=== PATIENT | male | born 1985 | race Caucasian/White ===

== ENCOUNTER 2020-01-25 13:05 | Emergency (ER) | payer OTHER, SELFPAY ==
[2020-01-25 13:12] VITALS: BP 126/75; PULSE 63; RESP 16; TEMP 37; O2SAT 100
[2020-01-25 13:28] VITALS: BP 126/75; PULSE 63; RESP 16; TEMP 37; O2SAT 100
--- NOTE | 2020-01-25 13:37 | ED.URI ---
HPI - URI/Sore Throat General Chief Complaint: Upper Respiratory Infection Stated Complaint: sore throat Time Seen by Provider: 01/25/20 13:43 Source: patient History of Present Illness HPI Narrative: Patient presents with a sore throat that started last night. Patient states he has no trouble swallowing and no drooling. Patient states he has seasonal allergies and for the past 2 weeks has had a sinus headache. Patient reports occasional cough increased body aches and generalized fatigue. Patient denies any shortness of breath and no chest pain. Patient is not taking thing [id number] for his symptoms. Related Data Home Medications Medication Instructions Recorded Confirmed albuterol sulfate 90 inh INHALATION PRN 01/25/20 01/25/20 Allergies Allergy/AdvReac Type Severity Reaction Status Date / Time egg Allergy Unknown N/V Verified 01/25/20 13:28 Review of Systems Review of Systems: Narrative: CONSTITUTIONAL: Denies chills, or sweats. Reports fever and generalized body aches EYES: Denies visual changes, redness, or discharge. ENT: Denies otalgia. Reports nasal congestion runny nose and sore throat CARDIOVASCULAR: Denies chest pain, palpitations, or edema. RESPIRATORY: Denies dyspnea. Reports occasional cough GASTROINTESTINAL: Denies abdominal pain, nausea, vomiting, or diarrhea. GENITOURINARY: Denies dysuria or hematuria. SKIN: Denies rash or itching. MUSCULOSKELETAL: Denies back pain, joint pain, or myalgia. Reports generalized body aches NEUROLOGIC: Denies headache, numbness, or weakness. PSYCHIATRIC: Denies anxiety or depression. PMFSH Comments At time of signature, agree with nursing past medical, surgical, social and family history. There is no relevant family history pertinent to the presenting complaint Exam Narrative: Exam Narrative: The patient is a well-developed, well-nourished in no acute distress. SKIN: Skin is warm and dry without erythema, swelling or exudate. There is good turgor. No tenting. HEAD: Atraumatic. Normocephalic. No temporal or scalp tenderness. EYES: Moist and bright. Sclera and conjunctivae normal. No discharge. PERRLA. Extraocular motions intact. Gross visual acuity intact. EARS: Pinna is normal shape and contour. Clear external auditory canals. TM pearly murray with good cone of light, no erythema or suppuration. Bilateral cerumen noted no gross hearing deficit. NOSE: pink, moist mucosa with good air movement. Clear rhinorrhea without nasal flaring. Septum midline. Mouth: moist mucous membranes. THROAT; mild erythema noted to posterior oropharynx with moderate postnasal drainage. Without exudate or ulceration.. Uvula midline. Normal movement of soft palate. No trismus able to open mouth fully NECK: Supple and nontender with full range of motion without discomfort. No meningeal signs. LUNGS: Equal and bilateral breath sounds without wheezes, rales or rhonchi. CHEST: The chest wall is without retractions or use of accessory muscles. HEART: Has a regular rate and rhythm without murmur, gallops, click or rub. ABDOMEN: Soft, nontender with positive active bowel sounds. No rebound tenderness. EXTREMITIES: Without cyanosis, clubbing or edema. Equal 2+ distal pulses and 2 second capillary refill noted. NEUROLOGIC: alert, active, . The patient moves all extremities with normal muscle strength. Normal muscle tone is noted. Normal coordination is noted. NO focal neurological findings noted. Course Vital Signs Vital signs: Vital Signs Temperature 37.0 C 01/25/20 13:12 Pulse Rate 63 01/25/20 13:12 Respiratory Rate 16 01/25/20 13:12 Blood Pressure 126/75 01/25/20 13:12 Pulse Oximetry 100 01/25/20 13:12 Temperature 37.0 C 01/25/20 13:28 Pulse Rate 63 01/25/20 13:28 Respiratory Rate 16 01/25/20 13:28 Blood Pressure 126/75 01/25/20 13:28 Pulse Oximetry 100 01/25/20 13:28 Discussed physical exam with patient and has several symptoms that indicate COVID-19. Pawel
== END 2020-01-25 13:44 | disposition home or self-care (01) ==
PROVIDERS: Emergency Provider Nurse Practitioner Family; PCP Family Medicine
DX: Z20.828 Contact with and (suspected) exposure to other viral communicable diseases (principal); J06.9 Acute upper respiratory infection, unspecified; J02.9 Acute pharyngitis, unspecified; J45.909 Unspecified asthma, uncomplicated
CPT/HCPCS: 87081; 87880; 99213; G0463

== ENCOUNTER 2020-02-18 11:35 | Emergency (ER) | payer OTHER, SELFPAY ==
[2020-02-18 11:41] VITALS: BP 131/86; PULSE 88; RESP 18; TEMP 37.1; O2SAT 100
--- NOTE | 2020-02-18 11:51 | ED.BACK ---
HPI - Back Pain/Injury General Chief Complaint: Back Pain/Injury Stated Complaint: throat and threw back out Time Seen by Provider: 02/18/20 11:51 Source: patient Mode of arrival: ambulatory Limitations: no limitations History of Present Illness HPI Narrative: 34-year-old male patient presents to the [facility] with complaints of sore throat that started yesterday. Patient states he has also had some body aches, chills with a sore throat. Patient states that he was tested for strep early January and it came back negative but he did go to get tested for Covid and was positive at that time. Patient states that his isolation ended about 2 weeks ago and has been doing okay. Patient states he does get strep a lot but has never had a tonsillectomy. Patient also coming in today complaining of low back pain for the past 5 days that got increasingly worse this morning. Patient denies take anything for the pain today. Patient states that the pain does radiate a little bit around the left side. Patient denies any injury to the back that he is aware of. Patient states he feels like he is peeing more often but denies seeing any blood to the urine that he is aware of. Related Data Home Medications Medication Instructions Recorded Confirmed albuterol sulfate 90 inh INHALATION PRN 01/25/20 02/18/20 Allergies Allergy/AdvReac Type Severity Reaction Status Date / Time egg Allergy Unknown N/V Verified 02/18/20 12:07 Review of Systems Review of Systems: Narrative: CONSTITUTIONAL: Denies fever, positive body aches in chills, patient positive sweats. EYES: Denies visual changes, redness, or discharge. ENT: Denies rhinorrhea, congestion, positive sore throat, denies otalgia. CARDIOVASCULAR: Denies chest pain, palpitations, or edema. RESPIRATORY: Denies cough or dyspnea. GASTROINTESTINAL: Denies abdominal pain, positive nausea, denies vomiting, or diarrhea. GENITOURINARY: Denies dysuria or hematuria. SKIN: Denies rash or itching. MUSCULOSKELETAL: Positive low back pain, denies joint pain, or myalgia. NEUROLOGIC: Denies headache, numbness, or weakness. PSYCHIATRIC: Denies anxiety or depression. [facility], [facility] Past Medical History Medical History (Updated 02/18/20 @ 12:31 by RADHA Daniels) Asthma Surgical History Surgical History (Updated 02/18/20 @ 11:52 by RADHA Daniels) History of orthopedic surgery Fracture right clavicle Social History Social History (Updated 02/18/20 @ 11:52 by RADHA Daniels) Smoking status: Current every day smoker Comments At the time of my signature I agree with nursing past medical history, surgical, social, and family history. There is no relevant family history pertinent to the presenting complaint. Exam Narrative: Exam Narrative: GENERAL: Well-appearing, well-nourished, . HEAD: Normocephalic, atraumatic. EYES: PERRLA and EOMI. ENT: Nares clear, no rhinorrhea or epistaxis. Mucous membranes moist. Posterior pharynx with some erythema but no tonsil enlargement, no exudates or lesions present. NECK: Supple. No lymphadenopathy CHEST: Clear to auscultation. No respiratory distress. Patient will talk clear complete sentences. HEART: Regular rate and rhythm. No murmur heard. Normal peripheral pulses. ABDOMEN: Soft, nontender, nondistended, normal active bowel sounds. No CVA tenderness on percussion BACK: Patient is able to ambulated without assistance. Pt is seated on the stretcher in obvouis distress of the low back. No surface trauma noted. No muscle tenderness to Palpation. No obvious spasm or mass. No step-offs or deformity noted to the cervical, thoracic or lumbar spine to firm Palpation at the midline. No CVA tenderness to percussion. No saddle anesthesia. ROM: Complains of pain when trying to stand erect. Normal flexion, extension, Lateral bending and rotation without limitation or complaint of pain. EXTREMITIES: Normal range of motion. No edema. SKIN: Warm, dry, no rash. NEURO: No foca
[2020-02-18] MEDS: IBUPROFEN 400 MG TABLET 800 MG PO (12:28)
== END 2020-02-18 12:45 | disposition home or self-care (01) ==
PROVIDERS: Emergency Provider Nurse Practitioner Family; PCP Family Medicine
DX: J02.9 Acute pharyngitis, unspecified (principal); M54.42 Lumbago with sciatica, left side; F17.200 Nicotine dependence, unspecified, uncomplicated; J45.909 Unspecified asthma, uncomplicated
CPT/HCPCS: 81003; 87081; 87880; 99213; A9270; G0463